=== PATIENT | male | born 1970 | race Caucasian/White ===

== ENCOUNTER 2024-06-25 15:31 | Emergency (ER) | payer MEDICARE, MEDICAID ==
[~2024-06-25] VITALS: Ht 177.8 cm; Wt 100.0 kg
[2024-06-25 15:51] VITALS: BP 135/69; PULSE 86; RESP 18; TEMP 98.7; O2SAT 97
[2024-06-25 18:20] LABS: BASOPHILS % 1.2 % (0.0-2.0); EOSINOPHILS % 3.4 % (0.0-5.0); HEMATOCRIT. 40.5 % (42.0-52.0); HEMOGLOBIN. 13.4 g/dL (14.0-18.0); LYMPHOCYTES % 32.2 % (20.0-50.0); MEAN CORPUSCULAR HEMOGLOBIN 27.3 pg (28.0-32.0); MEAN CORPUSCULAR HGB CONC 33.1 g/dL (31.0-37.0); MEAN CORPUSCULAR VOLUME 82.5 fL (80.0-94.0); MEAN PLATELET VOLUME 8.5 fl (7.4-10.4); MONOCYTES % 10.1 % (2.0-8.0); NEUTROPHILS % 53.1 % (40.0-76.0); PLATELET 226 x1000/uL (130-400); RED BLOOD CELL COUNT 4.91 mill/uL (4.7-6.1); RED CELL DISTRIBUTION WIDTH 14.7 % (11.6-14.6); WHITE BLOOD COUNT 6.7 x1000/uL (4.5-11.0)
[2024-06-25] MEDS ORDERED: ZINC136C2 TP (18:25)
[2024-06-25] MEDS ORDERED: HYDR453.3 TP (18:25)
[2024-06-25 18:26] LABS: CHLORIDE 110 mEq/L (98-107); SODIUM 144 mEq/L (136-145)
[2024-06-25 18:27] LABS: CALCIUM 9.3 mg/dL (8.7-10.4); CARBON DIOXIDE 28 mEq/L (21-32)
[2024-06-25 18:32] LABS: CREATININE 0.8 mg/dL (0.6-1.3); GLUCOSE 102 mg/dL (70-105); UREA NITROGEN BLOOD 11 mg/dL (9-23)
== END 2024-06-25 18:53 | disposition home or self-care (01) ==
LOC: ER 15:31
DX: K60.2 Anal fissure, unspecified (principal); F31.9 Bipolar disorder, unspecified
CPT/HCPCS: 36415; 80048; 85025; 99283

== ENCOUNTER 2025-08-08 12:12 | Emergency (ER) | payer OTHER ==
[~2025-08-08] VITALS: Ht 180.3 cm; Wt 105.5 kg
[~2025-08-08 12:12] MED LIST: HYDR453.3 TP; ZINC136C2 TP
[2025-08-08 12:16] VITALS: O2SAT 100
[2025-08-08 12:26] VITALS: BP 145/79; PULSE 92; RESP 16; TEMP 36.7; O2SAT 98
[2025-08-08 12:43] LABS: BASOPHILS % 1.0 % (0.0-2.0); EOSINOPHILS % 1.0 % (0.0-5.0); HEMATOCRIT. 38.8 % (42.0-52.0); HEMOGLOBIN. 13.0 g/dL (14.0-18.0); LYMPHOCYTES % 26.6 % (20.0-50.0); MEAN PLATELET VOLUME 8.5 fl (7.4-10.4); MONOCYTES % 7.0 % (2.0-8.0); NEUTROPHILS % 64.4 % (40.0-76.0); PLATELET 197 x1000/uL (130-400); RED BLOOD CELL COUNT 4.81 mill/uL (4.7-6.1); RED CELL DISTRIBUTION WIDTH 15.3 % (11.6-14.6)
[2025-08-08 12:58] LABS: CREATININE 0.9 mg/dL (0.6-1.3); UREA NITROGEN BLOOD 10 mg/dL (9-23)
[2025-08-08 13:19] LABS: BILIRUBIN DIRECT 0.1 mg/dL (<=3.0)
[2025-08-08 13:20] LABS: ASPARTATE AMINOTRANSFERASE 43 IU/L (<34); BILIRUBIN TOTAL 0.4 mg/dL (0.1-1.0); PROTEIN TOTAL 7.5 g/dL (6.0-8.3)
[2025-08-08 17:30] LABS: CLARITY URINE CLEAR (CLEAR); COLOR URINE YELLOW (YELLOW); GLUCOSE URINE NEGATIVE (NEGATIVE); KETONES URINE NEGATIVE (NEGATIVE); LEUKOCYTE ESTERASE URINE NEGATIVE (NEGATIVE); NITRITE URINE NEGATIVE (NEGATIVE); OCCULT BLOOD URINE NEGATIVE (NEGATIVE); PH URINE 6.0 (4.5-8.0); PROTEIN URINE NEGATIVE (NEGATIVE); SPECIFIC GRAVITY URINE 1.013 (1.005-1.030); UROBILINOGEN URINE 0.2 E.U./dL (0.2-1.0)
== END 2025-08-08 17:51 | disposition home or self-care (01) ==
LOC: ER 12:12
DX: R10.31 Right lower quadrant pain (principal); F31.9 Bipolar disorder, unspecified; Z98.890 Other specified postprocedural states
CPT/HCPCS: 36415; 74176; 80048; 80076; 81003; 85025; 99284